=== PATIENT | male | born 1990 | race American Indian/Alaskan Native ===

== ENCOUNTER 2017-04-04 16:36 | Emergency (ER) | payer SELFPAY ==
[2017-04-04] MEDS ORDERED: ceFAZolin 2 GM in NACL 0.9% 100 ML IV ONE (17:09)
[2017-04-04] MEDS ORDERED: MORPHINE IV ONE (17:10)
[2017-04-04] MEDS ORDERED: BOOSTRIX IM ONE (17:10)
[2017-04-04] MEDS ORDERED: ROCEPHIN/NS 1 GM/50 ML 1 GM/50 ML BAG IV ONE (17:29)
[2017-04-04 17:50] LABS: Anion Gap 18 mmol/L; BUN/Creatinine Ratio 11.25; Blood Urea Nitrogen 9 mg/dL (9-20); Calcium 9.8 mg/dL (8.4-10.2); Carbon Dioxide 25 mmol/L (22-30); Chloride 101.6 mmol/L (98-107); Glucose 107 mg/dL (75-100); Potassium 3.6 mmol/L (3.6-5.0); Sodium 141 mmol/L (137-145)
[2017-04-04 17:51] LABS: Basophils % (Auto) 0.2 % (0.0-1.8); Eosinophils % (Auto) 0.6 % (0.0-4.3); Hematocrit 46.1 % (35.5-45.6); Hemoglobin 15.7 gm/dl (11.8-15.2); Mean Corpuscular HGB Conc 34 % (32-34); Mean Corpuscular Hemoglobin 31 pg (28-32); Mean Corpuscular Volume 90 fl (84-94); Platelet Count 107 K/mm3 (140-440); Red Cell Distribution Width 14.3 % (13.2-15.2); White Blood Count 6.4 K/mm3 (4.5-11.0)
[2017-04-04 18:01] LABS: INR 0.92 (0.87-1.13)
[2017-04-04 18:02] LABS: Partial Thromboplastin Time 23.8 Sec. (24.2-36.6)
[2017-04-04] MEDS ORDERED: NACL 0.9% 1000 ML 1,000 ML IV ONE ×2 (18:14→19:48)
[2017-04-04] MEDS ORDERED: NACL 0.9% 1000 ML 1,000 ML ONE (18:27)
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
[2017-04-04 20:45] VITALS: BP 110/93
== END 2017-04-04 20:45 | disposition home or self-care (01) ==
LOC: ED 16:36
DX: S41.102A Unspecified open wound of left upper arm, initial encounter (principal); I10 Essential (primary) hypertension; W34.00XA Accidental discharge from unspecified firearms or gun, initial encounter; Y93.89 Activity, other specified; Y92.89 Other specified places as the place of occurrence of the external cause; Y99.8 Other external cause status
CPT/HCPCS: 36415; 73060; 80048; 85025; 85610; 85730; 90471; 90715; 96361; 96365; 96375; 99284; J0690; J0696; J2270; J7030